=== PATIENT | male | born 1960 | race Caucasian/White ===

== ENCOUNTER 2021-06-16 10:25 | Emergency (ER) | payer OTHER ==
[~2021-06-16 10:25] MED LIST: BACTROBAN OINT22 GM EXT; DOXYCYCLINE HY100 M2 PO; IBUPROFEN600 MG PO
[2021-06-16 12:34] LABS: HEMOGLOBIN 15.2 gm/dl (14.0-17.5); RED BLOOD COUNT 4.99 M/UL (4.20-5.50); WHITE BLOOD COUNT 11.5 K/UL (4.5-11.0)
[2021-06-16 12:58] LABS: BUN/CREATININE RATIO 9 (0-10)
[2021-06-16] MEDS ORDERED: PYRIDIUM100 MG PO (13:33)
[2021-06-16] MEDS ORDERED: CIPRO500 MG PO (13:33)
== END 2021-06-16 14:07 | disposition home or self-care (01) ==
LOC: ER1 10:25
PROVIDERS: Nurse Practitioner
DX: N30.91 Cystitis, unspecified with hematuria (principal); F17.210 Nicotine dependence, cigarettes, uncomplicated
CPT/HCPCS: 80053; 80307; 81001; 85025; 85610; 85730; 87086; 96374; 96375; 99283; G0480; J1885; J2405; J7030

== ENCOUNTER 2021-06-18 18:11 | Emergency (ER) | payer OTHER ==
[~2021-06-18 18:11] MED LIST changes: +CIPRO500 MG PO; +PYRIDIUM100 MG PO
[2021-06-18 19:31] LABS: HEMOGLOBIN 14.4 gm/dl (14.0-17.5); RED BLOOD COUNT 4.72 M/UL (4.20-5.50); WHITE BLOOD COUNT 9.4 K/UL (4.5-11.0)
[2021-06-18 19:45] LABS: BUN/CREATININE RATIO 8 (0-10)
== END 2021-06-18 22:10 | disposition home or self-care (01) ==
LOC: ER1 18:11
PROVIDERS: Nurse Practitioner
DX: R10.9 Unspecified abdominal pain (principal); F17.200 Nicotine dependence, unspecified, uncomplicated
CPT/HCPCS: 80048; 81001; 85025; 99284

== ENCOUNTER 2022-02-15 17:42 | Emergency (ER) | payer OTHER ==
[2022-02-15 19:09] LABS: HEMOGLOBIN 13.2 gm/dl (14.0-17.5); RED BLOOD COUNT 4.36 M/UL (4.20-5.50); WHITE BLOOD COUNT 9.1 K/UL (4.5-11.0)
[2022-02-15 19:35] LABS: BUN/CREATININE RATIO 12 (0-10)
[2022-02-15] MEDS ORDERED: MACROBID 100 M100 MG PO (21:08)
[2022-02-15] MEDS ORDERED: FLOMAX0.4 MG PO (21:08)
[2022-02-15] MEDS ORDERED: TORADOL 10 MG T10 MG PO (21:08)
== END 2022-02-15 21:20 | disposition home or self-care (01) ==
LOC: ER1 17:42
PROVIDERS: Family Medicine
DX: N20.1 Calculus of ureter (principal); F17.210 Nicotine dependence, cigarettes, uncomplicated
CPT/HCPCS: 80053; 81001; 85025; 87086; 96374; 99284; J1885